=== PATIENT | female | born 1970 | race American Indian/Alaskan Native ===

== ENCOUNTER 2019-06-30 01:17 | Emergency (ER) | payer OTHER ==
[~2019-06-30] VITALS: Ht 175.3 cm; Wt 88.9 kg
--- OUTSIDE RECORDS SUMMARY | ~2019-06-30 | XMS | Encounter Summary ---
Demographics + + + | Address | [address] | | | [place] [address] | + + + | Home Phone | | + + + | Preferred Language | Unknown | + + + | Marital Status | | + + + | Muslim Affiliation | Unknown | + + + | Race | Unknown | + + + | Ethnic Group | Unknown | + + + Author + + + | Author | [facility] | | | and Jose Miguelana | + + + | Organization | [facility] | | | and Jose Miguelana | + + + | Address | Unknown | + + + | Phone | Unavailable | + + + Support + + +---------+ + | Name | Relationship | Address | Phone | + + +---------+ + | Julio Cesar Rankin | ECON | Unknown | | + + +---------+ + Care Team Providers + +------+ + | Care Sample Washer Name | Role | Phone | + +------+ + | Raman Anderson MD | PCP | | + +------+ + Reason for Visit +--------+ + | Reason | Comments | +--------+ + | Other | | +--------+ + Encounter Details +--------+ + + + + | Date | Type | Department | Care Team | Description | +--------+ + + + + | 09/17/ | Telephone | [facility] | Aurelio Ramos MD | Other | | 2017 | | CARE [address] | [address] | | | | | [place] | [place] | | | | | [id number] | [id number] | | | | | [phone] | | | +--------+ + + + + Social History + +-------+ +--------+------+ | Tobacco Use | Types | Packs/Day | Years | Date | | | | | Used | | + +-------+ +--------+------+ | Never Smoker | | | | | + +-------+ +--------+------+ + +---+---+---+ | Smokeless Tobacco: | | | | | Never Used | | | | + +---+---+---+ + + +---------+ + | Alcohol Use | Drinks/Week | oz/Week | Comments | + + +---------+ + | Yes | 0 Standard drinks | 2.0 | | | | or equivalent 2 | | | | | Cans of beer | | | + + +---------+ + + + + | Sex Assigned at | Date Recorded | | | | + + + | Not on file | | + + + + + + + | Job Start Date | Occupation | Industry | + + + + | Not on file | Not on file | Not on file | + + + + + + + + | Travel History | Travel Start | Travel End | + + + + + + | No recent travel history available. | + + documented as of this encounter Plan of Treatment Not on filedocumented as of this encounter Visit Diagnoses Not on filedocumented in this encounter"
--- OUTSIDE RECORDS SUMMARY | ~2019-06-30 | XMS | Encounter Summary ---
Demographics + + + | Address | [address] | | | [place] [address] | + + + | Home Phone | | + + + | Preferred Language | Unknown | + + + | Marital Status | | + + + | Jewish Affiliation | Unknown | + + + | Race | Unknown | + + + | Ethnic Group | Unknown | + + + Author + + + | Author | [facility] | | | and Jose Miguelana | + + + | Organization | [facility] [place] | | | and Jose [...] Team Providers + +------+ + | Care Customer Consultant Name | Role | Phone | + +------+ + | Raman Anderson MD | PCP | | + +------+ + Reason for Visit + + + | Reason | Comments | + + + | Medication Refill | | + + + Encounter Details +--------+--------+ + + + | Date | Type | Department | Care Team | Description | +--------+--------+ + + + | 05/12/ | Refill | [facility] | Wilber Dsouza | Medication Refill | | 2017 | | [address] | [address], [address] | | | | | [place] | [address] [place] | | | | | [id number] | [id number] | | | | | [phone] | | | +--------+--------+ + + + Social History + +-------+ [...]
--- OUTSIDE RECORDS SUMMARY | ~2019-06-30 | XMS | Encounter Summary ---
Demographics + + + | Address | [address] | | | [place] [address] | + + + | Home Phone | | + + + | Preferred Language | Unknown | + + + | Marital Status | | + + + | Amish Affiliation | Unknown | + + + | Race | Unknown | + + + | Ethnic Group | Unknown | + + + Author + + + | Author | [facility] | | | and Jose Miguelana | + + + | Organization | [facility] [place] | | | and Jose Miguelana [...] Team Providers + +------+ + | Care Matchbook Maker Name | Role | Phone | + +------+ + | No, Physician | PCP | Unavailable | + +------+ + Reason for Visit +--------+ + | Reason | Comments | +--------+ + | Cough | room 1/fever,body aches, headaches x 5 days | +--------+ + Encounter Details +--------+---------+ + + + | Date | Type | Department | Care Team | Description | +--------+---------+ + + + | 06/26/ | Office | [facility] | Wilber Dsouza | Viral URI with cough | | 2016 | Visit | CARE [address] | MD [address] [address] | (Primary Dx); | | | | [place] | [address] [place] | Influenza, probable | | | | [id number] | [id number] | | | | | [phone] | | | +--------+---------+ + + + Social History + +-------+ [...] + + documented as of this encounter Last Filed Vital Signs + + + + + | Vital Sign | Reading | Time Taken | Comments | + + + + + | Blood Pressure | 113/69 | 06/26/2016 5:17 PM | | | | | PST | | + + + + + | Pulse | 70 | 06/26/2016 5:17 PM | | | | | PST | | + + + + + | Temperature | 36.6 C (97.8 F) | 06/26/2016 5:17 PM | | | | | PST | | + + + + + | Respiratory Rate | 16 | 06/26/2016 5:17 PM | | | | | PST | | + + + + + | Oxygen Saturation | 98% | 06/26/2016 5:17 PM | | | | | PST | | + + + + + | Inhaled Oxygen | - | - | | | Concentration | | | | + + + + + | Weight | 88.8 kg (195 lb 12.8 | 06/26/2016 5:17 PM | | | | oz) | PST | | + + + + + | Height | 175.3 cm (5' 9") | 06/26/2016 5:17 PM | | | | | PST | | + + + + + | Body Mass Index | 28.91 | 06/26/2016 5:17 PM | | | | | PST | | + + + + + documented in this encounter Patient Instructions Patient Instructions Wilber Dsouza MD - 06/26/2016 5:52 PM PSTReturn to work on June 28, 2016 or 24 hours after her last fever without taking fever reducing med ication, whichever is longer. Drink plenty of fluids and get plenty of rest. Use ccfy-hdu-pzhrcgd Tylenol, Aleve or Advil as needed for fever, aches and pains. Lavage nose with saline solution 3-4 times a day to improve nasal congestion. Mix 1 level t easpoon of table salt with 2 cups of lukewarm water for nasal irrigation. Use cool mist vaporizer in bedroom and living space to reduce cough and airway irritation. Gargle and spit out warm salt water to soothe sore throat. Use throat lozenges of choice an d/or Cepastat throat spray as needed. Take ramp-hfv-qadnrai Mucinex or equivalent product as needed for thick mucous. Use Tessalon Perles as needed for cough. Return or follow-up with your primary doctor if not better in 1 week, sooner if experiencin g difficulty swallowing liquids, progressive productive cough, associated chest pain, shortn ess of breath, fever or progessive sinus pressure/headache. These are signs that you may n eed an antibiotic for bacterial infection. Influenza (Adult) Influenza is also called the flu. It is a viral illness that affects the air passages of yo ur lungs. It is different from the common cold. The flu can easily be passed from one to per son to another. It may be spread through the air by coughing and sneezing. Or it can be spre ad by touching the sick person and then touching your own eyes, nose, or mouth. The flu starts 1 to 3 days after you are exposed to the flu virus. It may lastfor 1 to 2 weeks. You usually don t need to take antibiotics unless you have a complication. This alda ht be an ear or sinus infection or pneumonia. Symptoms of the flu may be mild or severe. They can include extreme tiredness (wanting to s traci in bed all day), chills, fevers, muscle aches, soreness with eye movement, headache, and a dry, hacking cough. Home care Follow these guidelines when caring for yourself at home: Avoid being around cigarette smoke, whether yours or other people s. Acetaminophen or ibuprofen will help ease your fever, muscle aches, and headache. Don t give aspirin to anyone younger than 18 who has the flu. Aspirin can harm the liver. Nausea and loss of appetite are common with the flu. Eat light meals. Drink 6 to 8 glass es of liquids every day. Good choices are water, sport drinks, soft drinks without caffeine, juices, tea, and soup. Extra fluids will also help loosen secretions in your nose and lungs . Wldr-kqg-bkcasxa cold medicines will not make the flu go away faster. But the medicines may help with coughing, sore throat, and congestion in your nose and sinuses. Don t use a decongestant if you have high blood pressure. Stay home until your fever has been gone for at least 24 hours without using medicine to reduce fever. Follow-up care Follow up with your health care provider, or as advised, if you are not getting better over the next week. If you are 65 or older, talk with your provider about getting a pneumococcal vaccine every 5 years. You should also get this vaccine if you have chronic asthma or COPD. All adults hugo uld get a flu vaccine every fall. Ask your provider about this. When to seek medical advice Call your health care provider right away if any of these occur: Cough with lots of colored sputum (mucus) or blood in your sputum Chest pain, shortness of breath, wheezing, or difficulty breathing Severe headache, or face, neck, or ear pain New rashwith fever Fever of 101F (38C) oral or higher that doesn t get better with fever medicine Confusion, behavior change, or seizure Severe weakness or dizziness You get a fever or cough after getting better for a few days [id number] [employer]. [address] [place] [address]. All righ ts reserved. This information is not intended as a substitute for professional medical care. Always follow your healthcare professional's instructions. documented in this encounter Progress Notes Wilber Dsouza MD - 06/26/2016 5:38 PM PSTFormatting of this note might be differen t from the original. Chief Complaint: Katie Leonard is a 45 y.o. female who comes in complaining of fever and cough for 5-6 days. Has ivan al congestion, facial sinus pain/pressure, bilateral ear ache, bilateral eye irritation, sor e throat and dry, hackey cough. No measured fever, had sweats or chills. Diffuse body aches and headache. Mild nausea withotu vomiting. Mild diarrhea. Mild shortness of breath, no whee zing and anterior pleuritic chest burning/pain. Non smoker and no hx of asthma or COPD. Antony grace hospitalized for the same. Has been taking Nyquil and essential oils with improvement in s ymptoms. Had exposure to son with the same. Patient's medications, allergies, past medical, surgical, social and family histories were reviewed and updated as appropriate. Objective: BP 113/69 mmHg | Pulse 70 | Temp(Src) 36.6 C (97.8 F) (Temporal) | Resp 16 | Ht 1.753 m (5' 9") | Wt 88.814 kg (195 lb 12.8 oz) | BMI 28.90 kg/m2 | SpO2 98% General Appearance: Alert, cooperative, no distress, appears stated age. Non toxic appeara nce. Head: Normocephalic, no mastoid tenderness, no facial sinus tenderness. Eyes: PERRL, conjunctiva clear without exudates. Ears: Unremarkable TM's with clear external ear canals and gross normal hearing. Nose: Moderately congested with clear exudates. Throat: Erythematous, mildly edematous without exudates. Moist MM. Neck: Supple, symmetrical, no anterior cervical adenopathy. Lungs: Clear to auscultation bilaterally without rales or wheezes, respirations unlabored. Cardiac: Regular rhythm, no murmur or sue. No ankle edema. Abdomen: Soft, non tender. No organomegaly. Skin: Skin color, texture, turgor normal, no rash. Assessment and Plans: 1. Viral URI with cough benzonatate (TESSALON PERLES) 100 mg capsule 2. Influenza, probable 5 day history of viral URI with cough consistent with probable influenza. Given the durati on of her symptoms, flu testing would not change our treatment plan. She was given the foll owing instructions and a note for work. Plan: Return to work on , June 28, 2016 or 24 hours after her last fever without taki ng fever reducing medication, whichever is longer. Drink plenty of fluids and get plenty of rest. Use agpg-uag-dlpwilo Tylenol, Aleve or Advil as needed for fever, aches and pains. Lavage nose with saline solution 3-4 times a day to improve nasal congestion. Mix 1 level t easpoon of table salt with 2 cups of lukewarm water for nasal irrigation. Use cool mist vaporizer in bedroom and living space to reduce cough and airway irritation. Gargle and spit out warm salt water to soothe sore throat. Use throat lozenges of choice an d/or Cepastat throat spray as needed. Take gaxf-rcx-anynexi Mucinex or equivalent product as needed for thick mucous. Use Tessalon Perles as needed for cough. Return or follow-up with your primary doctor if not better in 1 week, sooner if experiencin g difficulty swallowing liquids, progressive productive cough, associated chest pain, shortn ess of breath, fever or progessive sinus pressure/headache. These are signs that you may n eed an antibiotic for bacterial infection. Wilber Morocho documented in t his encounter Plan of Treatment Not on filedocumented as of this encounter Visit Diagnoses + + | Diagnosis | + + | Viral URI with cough - Primary Acute upper respiratory infections of unspecified site | + + | Influenza, probable Influenza with other respiratory manifestations | + + documented in this encounter
--- OUTSIDE RECORDS SUMMARY | ~2019-06-30 | XMS | Encounter Summary ---
Demographics + + + | Address | [address] | | | [place] [address] | + + + | Home Phone | | + + + | Preferred Language | Unknown | + + + | Marital Status | | + + + | Faith Affiliation | Unknown | + + + | Race | Unknown | + + + | Ethnic Group | Unknown | + + + Author + + + | Author | [facility] | | | and Jose Miguelana | + + + | Organization | [facility] [place] | | | and Jose [...] Team Providers + +------+ + | Care Logger All Round Name | Role | Phone | + +------+ + | Raman Anderson MD | PCP | | + +------+ + Reason for Visit + + + | Reason | Comments | + + + | Ear Fullness | LEFT EAR FEELS PLUGGED AND goes down into neck, RM 8 | + + + | Facial Pain | sinus pressure | + + + Encounter Details +--------+---------+ + + + | Date | Type | Department | Care Team | Description | +--------+---------+ + + + | 06/27/ | Office | [facility] | Aurelio Ramos MD | Acute serous otitis | | 2019 | Visit | CARE [address] | [address] | media of left ear, | | | | [place] | [place] | recurrence not | | | | [id number] | [id number] | specified (Primary | | | | [phone] | | Dx) | +--------+---------+ + + + Social History [...] + + + | Blood Pressure | 108/71 | 06/27/2019 2:03 PM | | | | | PST | | + + + + + | Pulse | 84 | 06/27/2019 2:03 PM | | | | | PST | | + + + + + | Temperature | 36.8 C (98.2 F) | 06/27/2019 2:03 PM | | | | | PST | | + + + + + | Respiratory Rate | 12 | 06/27/2019 2:03 PM | | | | | PST | | + + + + + | Oxygen Saturation | 95% | 06/27/2019 2:03 PM | | | | | PST | | + + + + + | Inhaled Oxygen | - | - | | | Concentration | | | | + + + + + | Weight | 89 kg (196 lb 3.4 | 06/27/2019 2:03 PM | | | | oz) | PST | | + + + + + | Height | 175.3 cm (5' 9") | 06/27/2019 2:03 PM | | | | | PST | | + + + + + | Body Mass Index | 28.98 | 06/27/2019 2:03 PM | | | | | PST | | + + + + + documented in this encounter Patient Instructions Patient Instructions Aurelio Ramos MD - 06/27/2019 1:15 PM PST Earache, No Infection (Adult) Earaches can happen without an infection. This occurs when air and fluid build up behind th e eardrum causing a feeling of fullness and discomfort and reduced hearing. This is called o titis media with effusion (OME) or serous otitis media. It means there is fluid in the middl e ear. It is not the same as acute otitis media, which is typically from infection. OME can happen when you have a cold if congestion blocks the passage that drains the middle ear. This passage is called the eustachian tube. OME may also occur with nasal allergies or after a bacterial middle ear infection. The pain or discomfort may come and go. You may hear clicking or popping sounds when you ch ew or swallow. You may feel that your balance is off. Or you may hear ringing in the ear. It often takes from several weeks up to 3 months for the fluid to clear on its own. Oral pa in relievers and ear drops help if there is pain. Decongestants and antihistamines sometimes help. Antibiotics don't help since there is no infection. Your doctor may prescribe a nasal spray to help reduce swelling in the nose and eustachian tube. This can allow the ear to dr poon. If your OME doesn't improve after 3 months, surgery may be used to drain the fluid and inse rt a small tube in the eardrum to allow continued drainage. Because the middle ear fluid can become infected, it is important to watch for signs of an ear infection which may develop later. These signs include increased ear pain, fever, or luz maria inage from the ear. Home care The following guidelines will help you care for yourself at home: You may use dbti-zle-czriwnm medicine as directed to control pain, unless another medici ne was prescribed. If you have chronic liver or kidney disease or ever had a stomach ulcer o r GI bleeding, talk with your doctor before using these medicines. Aspirin should never be u sed in anyone under 18 years of age who is ill with a fever. It may cause severe liver damag e. You may use sqci-zwu-kenqxlz decongestants such as phenylephrine or pseudoephedrine. But they are not always helpful. Don't use nasal spray decongestants more than 3 days. Longer u se can make congestion worse. Prescription nasal sprays from your doctor don't typically hav e those restrictions. Antihistamines may help if you are also having allergy symptoms. You may use medicines such as guaifenesin to thin mucus and promote drainage. Follow-up care Follow up with your healthcare provider or as advised if you are not feeling better after 3 days. When to seek medical advice Call your healthcare provider right away if any of the following occur: Your ear pain gets worse or does not start to improve Fever of 100.4F (38C) or higher, or as directed by your healthcare provider Fluid or blood draining from the ear Headache or sinus pain Stiff neck Unusual drowsiness or confusion Date Last Reviewed: 03/31/201619992047-9966 [employer]. [address] [place] [address]. All righ ts reserved. This information is not intended as a substitute for professional medical care. Always follow your healthcare professional's instructions. documented in this encounter Progress Notes Aurelio Ramos MD - 06/27/2019 1:15 PM PST Subjective: Patient ID: Aisha Rankin is a 48 y.o. female. For 48 to 72 hours, patient's left ear farr s felt stuffy and painful, 7/10 intensity, constant pain. The pain radiates down the angle of her mandible and into the superior part of the left side of her neck. She denies recent URI, but has perennial allergic rhinitis and congestion. The ear does not pop. No cough, no fever. She feels as if her face is full and congested. HPI Patient's medications, allergies, past medical, surgical, social and family histories were obtained and reviewed as appropriate. Review of Systems he has past history of sinus infection. No past history of otitis media. No GI or symptoms. Some aching of the apex of the left shoulder in the same timeframe. Objective: BP 108/71 | Pulse 84 | Temp 36.8 C (98.2 F) (Temporal) | Resp 12 | Ht 1.753 m (5' 9 ") | Wt 89 kg (196 lb 3.4 oz) | SpO2 95% | No | BMI 28.98 kg/m Physical Exam Vitals signs and nursing note reviewed. Constitutional: Comments: Normally developed, adequately nourished, and not in acute distress. Does not appear acutely ill. HENT: Head: Comments: Ear canal is a little swollen, and tender to traction on the pinna. The left TM is dull, not bulging. Left parotid gland is slightly tender and mushy. Right Ear: Tympanic membrane, ear canal and external ear normal. Nose: Congestion and rhinorrhea present. Comments: No sinus tenderness. Mouth/Throat: Pharynx: Oropharynx is clear. Cardiovascular: Comments: Cardiac rhythm is regular, and rate is within normal limits. Heart sounds are of good quality. No murmur or gallop heard. Pulmonary: Comments: No respiratory distress. Respiratory effort is normal. Clear breath sounds h eard throughout all lung garcia. Musculoskeletal: Arms: Lymphadenopathy: Cervical: No cervical adenopathy. Assessment: Eustachian salpingitis, with impending left otitis media Serous otitis media Plan: Rx amoxicillin 875 mg twice daily x 10 days. Ibuprofen may be helpful, as well as intermit tent heat. She may have a mild parotitis on the left as well. She will follow-up PRN poor progress and continue nasal decongestants. This note or portions of this note have been dictated using [employer] s oftware. It will be reviewed for major content but may contain mistakes due to difficulties with voice recognition software. documented in this enc ounter Plan of Treatment Not on filedocumented as of this encounter Visit Diagnoses + + | Diagnosis | + + | Acute serous otitis media of left ear, recurrence not specified - Primary | + + documented in this encounter
--- OUTSIDE RECORDS SUMMARY | ~2019-06-30 | XMS | Encounter Summary ---
Demographics + + + | Address | [address] | | | [place] [address] | + + + | Home Phone | | + + + | Preferred Language | Unknown | + + + | Marital Status | | + + + | Latter-Day Affiliation | Unknown | + + + | Race | Unknown | + + + | Ethnic Group | Unknown | + + + Author + + + | Author | [facility] | | | and Jose Miguelana | + + + | Organization | [facility] | | | and Jose [...] Team Providers + +------+ + | Care Health Informatics Advisor Name | Role | Phone | + +------+ + | Raman Anderson MD | PCP | | + +------+ + Encounter Details +--------+ + + + + | Date | Type | Department | Care Team | Description | +--------+ + + + + | 07/13/ | [facility] | [facility] | Aurelio Ramos MD | Injury of left | | 2017 | Encounter | [facility] | [address] | ankle, initial | | | | [address] | [place] | encounter | | | | [place] | [address] | | | | | [address] | | | | | | [phone] | | | +--------+ + + + [...] + + documented as of this encounter Medications at Time of Discharge + + + +---------+--------+ + | Medication | Sig | Dispensed | Refills | Start | End Date | | | | | | Date | | + + + +---------+--------+ + | fluticasone | 1 spray by Nasal | | 0 | | | | (FLONASE) 50 | route Daily. | | | | | | mcg/nasal spray | | | | | | + + + +---------+--------+ + | Loratadine | Take by mouth. | | 0 | | | | (CLARITIN PO) | | | | | | + + + +---------+--------+ + | ESTRADIOL TD | Place onto the | | 0 | | | | | skin. | | | | 7 | + + + +---------+--------+ + documented as of this encounter Plan of Treatment Not on filedocumented as of this encounter Procedures + +--------+ + + + | Procedure Name | Priori | Date/Time | Associated Diagnosis | Comments | | | ty | | | | + +--------+ + + + | XR ANKLE LEFT 3 + VW | Routin | 07/13/2016 | Injury of left | Results for this | | | e | 1:39 PM | ankle, initial | procedure are in the | | | | PST | encounter | results section. | + +--------+ + + + documented in this encounter Results XR Ankle Left 3 + Vw (07/13/2016 1:39 PM PST) + + | Specimen | + + | | + + + + + | Narrative | Performed At | + + + | XR ANKLE LEFT 3 + VW 07/13/2016 1:39 PM HISTORY: pain ankle. | [facility] | | COMPARISON: None. FINDINGS: There are no acute osseous | [facility] | | abnormalities. No significant degenerative changes are seen. Bone | [facility] | | mineralization is normal. Soft tissue structures are unremarkable. | - IMAGING | | IMPRESSION - No acute osseous findings. No acute soft tissue | | | swelling. Small plantar calcaneal enthesophyte. Dictated | | | and Signed by: Deyvi Pichardo MD Electronically signed: 07/13/2016 | | | 1:45 PM | | + + + + + | Procedure Note | + + | Donaldo, Rad Results In - 07/13/2016 1:48 PM PST XR ANKLE LEFT 3 + VW 07/13/2016 1:39 PM | | | | HISTORY: pain ankle. | | | | COMPARISON: None. | | | | FINDINGS: | | There are no acute osseous abnormalities. No significant degenerative changes | | are seen. Bone mineralization is normal. Soft tissue structures are | | unremarkable. | | | | IMPRESSION - | | No acute osseous findings. No acute soft tissue swelling. | | | | Small plantar calcaneal enthesophyte. | | | | | | | | Dictated and Signed by: Deyvi Pichardo MD | | Electronically signed: 07/13/2016 1:45 PM | + + + + + + + | Performing | Address | City/State/Zipcode | Phone Number | | Organization | | | | + + + + + | [facility] | [address] | [place], [place] | [phone] | | [facility] | | [address] | | | - IMAGING | | | | + + + + + documented in this encounter Visit Diagnoses + + | Diagnosis | + + | Injury of left ankle, initial encounter | + + documented in this encounter"
--- OUTSIDE RECORDS SUMMARY | ~2019-06-30 | XMS | Encounter Summary ---
Demographics + + + | Address | [address] | | | [place] [address] | + + + | Home Phone | | + + + | Preferred Language | Unknown | + + + | Marital Status | | + + + | Mormonism Affiliation | Unknown | + + + | Race | Unknown | + + + | Ethnic Group | Unknown | + + + Author + + + | Author | [facility] | | | and Jose Miguelana | + + + | Organization | [facility] | | | and Jose [...] Team Providers + +------+ + | Care Last Sorter Name | Role | Phone | + [...] Description | +--------+--------+ + + + | 06/23/ | Refill | [facility] | Wilber Dsouza | Medication Refill | | 2017 | | [address] | [address] | | | | | [place] | [address] [place] | | | | | [address] | [address] | | | | | [phone] | | | +--------+--------+ + + + [...]
--- OUTSIDE RECORDS SUMMARY | ~2019-06-30 | XMS | Encounter Summary ---
Demographics + + + | Address | [address] | | | [place] [address] | + + + | Home Phone | | + + + | Preferred Language | Unknown | + + + | Marital Status | | + + + | Hinduism Affiliation | Unknown | + + + | Race | Unknown | + + + | Ethnic Group | Unknown | + + + Author + + + | Author | [facility] | | | and Jose Miguelana | + + + | Organization | [facility] | | | and Jose [...] Team Providers + +------+ + | Care Truck Dock Material Mover Name | Role | Phone | + +------+ + | Raman Anderson MD | PCP | | + +------+ + Encounter Details +--------+ + + + + | Date | Type | Department | Care Team | Description | +--------+ + + + + | 07/13/ | [facility] | [facility] | Aurelio Ramos MD | Injury of left | | 2017 | Encounter | [facility] | [address] | ankle, initial | | | | [address] | [place] | encounter | | | | [place] | [address] | | | | | [address] | | | | | | [phone] | | | +--------+ + + + [...] ST[facility] | [address] | [place], [place] | [phone] | | [facility] | | [address] | | | - IMAGING | | | | + + + + + documented in this encounter Visit Diagnoses + + | Diagnosis | + + | Injury of left ankle, initial encounter | + + documented in this encounter"
--- OUTSIDE RECORDS SUMMARY | ~2019-06-30 | XMS | Clinical Summary ---
Demographics + + + | Address | [address] | | | [place] [address] | + + + | Home Phone | | + + + | Preferred Language | Unknown | + + + | Marital Status | | + + + | Amish Affiliation | Unknown | + + + | Race | Unknown | + + + | Ethnic Group | Unknown | + + + Author + + + | Author | [facility] | | | and Jose Miguelana | + + + | Organization | [facility] | | | and Jose Miguelana [...] Team Providers + +------+ + | Care Funeral Counselor Name | Role | Phone | + +------+ + | Raman Anderson MD | PCP | | + +------+ + Allergies No Known Allergies Medications + + + +---------+------+------+-------+ | Medication | Sig | Dispensed | Refills | Star | End | Statu | | | | | | t | Date | s | | | | | | Date | | | + + + +---------+------+------+-------+ | fluticasone | 1 spray by Nasal | | 0 | | | Activ | | (FLONASE) 50 | route Daily. | | | | | e | | mcg/nasal spray | | | | | | | + + + +---------+------+------+-------+ | Loratadine | Take by mouth. | | 0 | | | Activ | | (CLARITIN PO) | | | | | | e | + + + +---------+------+------+-------+ | cholecalciferol | Take 800 Units by | | 0 | | | Activ | | (VITAMIN D-3) 400 | mouth Daily. | | | | | e | | units capsule | | | | | | | + + + +---------+------+------+-------+ | Calcium 250 MG | Take by mouth. | | 0 | | | Activ | | CAPS | | | | | | e | + + + +---------+------+------+-------+ | azelastine | | | 0 | 10/0 | | Activ | | (OPTIVAR) 0.05 % | | | | 2/20 | | e | | ophthalmic solution | | | | 17 | | | + + + +---------+------+------+-------+ | SUDOGEST 30 MG | | | 4 | 09/2 | | Activ | | tablet | | | | 20 | | e | | | | | | 17 | | | + + + +---------+------+------+-------+ | estradiol | | | 0 | 09/0 | | Activ | | (ESTRACE) 1 mg | | | | 20 | | e | | tablet | | | | 19 | | | + + + +---------+------+------+-------+ | amoxicillin | Take 1 tablet by | 20 | 0 | 12/2 | 01/0 | Activ | | (AMOXIL) 875 mg | mouth 2 times daily | tablet | | /20 | / | e | | tabletIndications: | for 10 days. | | | 19 | 20 | | | Acute serous otitis | | | | | | | | media of left ear, | | | | | | | | recurrence not | | | | | | | | specified | | | | | | | + + + +---------+------+------+-------+ | vitamin B | Take 1 capsule by | | 0 | | 12/2 | Disco | | complex-C CAPS | mouth Daily. | | | | 8/20 | ntinu | | | | | | | 19 | ed | | | | | | | | (Ther | | | | | | | | apy | | | | | | | | compl | | | | | | | | eted) | + + + +---------+------+------+-------+ | estradiol | | | 11 | 09/3 | 12/2 | Disco | | (CLIMARA) 0.1 mg/24 | | | | 0/20 | 8/20 | ntinu | | hr | | | | 17 | 19 | ed | | | | | | | | (Ther | | | | | | | | apy | | | | | | | | compl | | | | | | | | eted) | + + + +---------+------+------+-------+ | raNITIdine | TAKE ONE TABLET BY | 30 | 0 | 12/2 | 12/2 | Disco | | (ZANTAC) 150 mg | MOUTH TWICE DAILY | tablet | | 8/20 | 8/20 | ntinu | | tablet | | | | 17 | 19 | ed | | | | | | | | (Ther | | | | | | | | apy | | | | | | | | compl | | | | | | | | eted) | + + + +---------+------+------+-------+ Active Problems No known active problems Encounters +--------+---------+ + + + | Date | Type | Specialty | Care Team | Description | +--------+---------+ + + + | 06/27/ | Office | Immediate Care | Aurelio Ramos MD | Acute serous otitis | | 2019 | Visit | | | media of left ear, | | | | | | recurrence not | | | | | | specified (Primary | | | | | | Dx) | +--------+---------+ + + + from Last 3 Months Family History + + +------+ + | Medical History | Relation | Name | Comments | + + +------+ + | Heart disease | Father | | | + + +------+ + | No known problems | Mother | | | + + +------+ + + +------+ + + | Relation | Name | Status | Comments | + +------+ + + | Father | | | | + +------+ + + | Mother | | Alive | | + +------+ + + Social History + +-------+ +--------+------+ [...] recent travel history available. | + + Last Filed Vital Signs + + + [...] | | + + + + + Plan of Treatment + + + + + | Health Maintenance | Due Date | Last Done | Comments | + + + + + | Vaccine: | | | | | Dtap/Tdap/Td (1 - | 2 | | | | Tdap) | | | | + + + + + | Breast Cancer | | | | | Screening | 6 | | | + + + + + | Vaccine: Influenza | Completed | 03/24/2019, 04/22/2018, | | | | | 04/14/2012, Additional history | | | | | exists | | + + + + + Results Not on filefrom Last 3 Months Insurance +-------+--------+ +--------+ +---------+------+ | Payer | Benefi | Subscriber | Effect | Phone | Address | Type | | | t Plan | ID | chepe | | | | | | / | | Dates | | | | | | Group | | | | | | +-------+--------+ +--------+ +---------+------+ | GEHA | GEHA | [id number] | 06/27/ | [phone] | | PPO | | | [employer]ET[employer] | | 2019-P | 6 | | | | | PPO | | resent | | | | +-------+--------+ +--------+ +---------+------+ + +--------+ +--------+ + + | Guarantor Name | Accoun | Relation to | Date | Phone | Billing Address | | | t Type | Patient | of | | | | | | | | | | + +--------+ +--------+ + + | Aisha Rankin | Person | Self [birth year] | [address] | | | al/Fam | | 1971 | [phone] | [place] [address] | | | mu | | | 0 (Home) | | + +--------+ +--------+ + + Advance Directives + + + + + | Type | Date Recorded | Patient | Explanation | | | | Doggy Daycare Activities Director | | + + + + + | Power of | | | | | Floor Renovator | | | | + + + + + | Advance | | | | | Directive | | | | + + + + +
--- OUTSIDE RECORDS SUMMARY | ~2019-06-30 | XMS | Encounter Summary ---
Demographics + + + | Address | [address] | | | [place] [address] | + + + | Home Phone | | + + + | Preferred Language | Unknown | + + + | Marital Status | | + + + | Zoroastrianism Affiliation | Unknown | + + + | Race | Unknown | + + + | Ethnic Group | Unknown | + + + Author + + + | Author | [facility] | | | and Jose Miguelana | + + + | Organization | [facility] | | | and [...] Team Providers + +------+ + | Care Rough And Trueing Machine Operator Name | Role | Phone | + +------+ + | Raman Anderson MD | PCP | | + +------+ + Reason for Visit + + + | Reason | Comments | + + + | Ankle Injury | room 5/ Lf ankle inj x 1 day | + + + Encounter Details +--------+---------+ + + + | Date | Type | Department | Care Team | Description | +--------+---------+ + + + | 07/13/ | Office | [facility] | Aurelio Ramos MD | Injury of left | | 2017 | Visit | CARE [address] | [address] | ankle, initial | | | | [place] | [place] | encounter (Primary | | | | [address] | [address] | Dx) | | | | [phone] | | | +--------+---------+ + + + [...] + + + | Blood Pressure | 117/66 | 07/13/2016 12:36 PM | | | | | PST | | + + + + + | Pulse | 88 | 07/13/2016 12:36 PM | | | | | PST | | + + + + + | Temperature | 36.1 C (97 F) | 07/13/2016 12:36 PM | | | | | PST | | + + + + + | Respiratory Rate | 16 | 07/13/2016 12:36 PM | | | | | PST | | + + + + + | Oxygen Saturation | 96% | 07/13/2016 12:36 PM | | | | | PST | | + + + + + | Inhaled Oxygen | - | - | | | Concentration | | | | + + + + + | Weight | 88.5 kg (195 lb) | 07/13/2016 12:36 PM | | | | | PST | | + + + + + | Height | 175.3 cm (5' 9") | 07/13/2016 12:36 PM | | | | | PST | | + + + + + | Body Mass Index | 28.8 | 07/13/2016 12:36 PM | | | | | PST | | + + + + + documented in this encounter Patient Instructions Patient Instructions Aurelio Ramos MD - 07/13/2016 1:50 PM PSTFormatting of this note mi ght be different from the original. Understanding Ankle Sprain The ankle is the joint where the leg and foot meet. Bones are held in place by connective t issue called ligaments. When ankle ligaments are stretched to the point of pain and injury, it is called an ankle sprain. A sprain can tear the ligaments. These tears can be very small but still cause pain. Ankle sprains can be mild or severe. What causes an ankle sprain? A sprain may occur when you twist your ankle or bend it too far. This can happen when you s tumble or fall. Things that can make an ankle sprain more likely include: Having had an ankle sprain before Playing sports that involve running and jumping. Or playing contact sports such as footb all or hockey. Wearing shoes that don t support your feet and ankles well Having ankles with poor strength and flexibility Symptoms of an ankle sprain Symptoms may include: Pain or soreness in the ankle Swelling Redness or bruising Not being able to walk or put weight on the affected foot Reduced range of motion in the ankle A popping or tearing feeling at the time the sprain occurs An abnormal or dislocated look to the ankle Instability or too much range of motion in the ankle Treatment for an ankle sprain Treatment focuses on reducing pain and swelling, and avoiding further injury. Treatments ma y include: Resting the ankle. Avoid putting weight on it. This may mean using crutches until the sp rain heals. Prescription or bgkj-dch-menyzuy pain medicines. These help reduce swelling and pain. Cold packs. These help reduce pain and swelling. Raising your ankle above your heart. This helps reduce swelling. Wrapping the ankle with an elastic bandage or ankle brace. This helps reduce swelling an d gives some support to the ankle. In rare cases, you may need a cast or boot. Stretching and other exercises. These improve flexibility and strength. Heat packs. These may be recommended before doing ankle exercises. Possible complications of an ankle sprain An ankle that has been weakened by a sprain can be more likely to have repeated sprains aft erward. Doing exercises to strengthen your ankle and improve balance can reduce your risk fo r repeated sprains. Other possible complications are long-term (chronic) pain or an ankle th at remains unstable. When to call your healthcare provider Call your healthcare provider right away if you have any of these: Fever of 100.4F (38C) or higher, or as directed Pain, numbness, discoloration, or coldness in the foot or toes Pain that gets worse Symptoms that don t get better, or get worse New symptoms Date Last Reviewed: 09/08/201519995839-0322 [employer]. [address] [place] [address], [place] [address]. All righ ts reserved. This information is not intended as a substitute for professional medical care. Always follow your healthcare professional's instructions. Ankle Inversion (Strength) This exercise is for your right ankle. Switch sides for your left ankle. Tie an elastic exercise band or tubing to the leg of a table. Tie the other end to your right foot. Stand far enough away from the table so that the elastic band or tubing is pulled tight. Point your right foot firmly to the left, pulling on the elastic band or tubing. Hold fo r 5 seconds. Relax your foot back to a straight position. Repeat this exercise 10 times. Do this exercise 3 times a day, or as instructed. Date Last Reviewed: 10/30/201519990155-6583 [employer]. [address] [place] [address], [place] [address]. All righ ts reserved. This information is not intended as a substitute for professional medical care. Always follow your healthcare professional's instructions. Ankle Sprain (Adult) An ankle sprain is a stretching or tearing of the ligaments that hold the ankle joint toget her. There are no broken bones. An ankle sprain is a common injury for both children and adults. It happens when the ankle turns, twists, or rolls in an awkward way. This can be caused by a sports injury. Or it can happen from doing something as simple as stepping on an uneven surface. Ligaments are made of tough connective tissue. Normally, ligaments stretch a certain amount and then go back to their normal place. A sprain happens when a ligament is forced to stret ch more than the normal amount. A severe sprain can actually tear the ligaments. If you have a severe sprain, you may have felt or heard something like a pop when you were injured. Ankle sprains are given a grade depending on whether they are mild, moderate, or severe: Grade 1 sprain. A mild sprain with minor stretching and damage to the ligament. Grade 2 sprain. A moderate sprain where the ligament is partly torn. Grade 3 sprain. The most severe kind of sprain. The ligament is completely torn. Most sprainstake about 4 to 6 weeks to heal. A severe sprain can take several months to r ecover. Your healthcare provider may order X-rays to be sure you don t have a fracture, or broken bone. The injured area will feel sore. Swelling and pain may make it hard to walk. You may need crutches if walking is painful. Or your provider may have you use a cast boot or air splint. This will depend on the grade of ankle sprain that you have. Home care For a Grade 1 sprain, use RICE (Rest, Ice, Compression, and Elevation): Rest your ankle. Don t walk on it. Ice should be used right away to help control swelling. Place an ice pack over the injur ed area for 20 minutes. Do this every3 to 6hoursfor the first24 to 48 hours.Keep u sing ice packs to ease pain and swelling as needed. To make an ice pack, put ice cubes in a plasticbag that seals at the top. Wrap the bag in aclean, thintowel or cloth. Never pu t ice or an ice pack directly on the skin. The ice pack can be put right on the cast, bandag e, or splint. As the ice melts, be careful that the cast, bandage, or splint doesn t get w et. If you have a boot, open it to apply an ice pack, unless told otherwise by your provider . Compression devices help to control swelling. They also keep the ankle from moving and s upport your injured ankle. These devices include dressings, bandages, and wraps. Elevate or raise your ankle above the level of your heart when sitting or lying down. Th is is very important for the first 48 hours. Follow the RICE guidelines for a Grade 2 sprain. This type of sprain will take longer to heal. Your provider may have you wear a splint, cast, or brace to keep your ankle from movi ng. If you have a Grade 3 sprain, you are at risk for long-term ankle instability. In rare cases, surgery may be needed. Your provider may have you wear a short leg cast or a walking boot for 2 to 3 weeks. After 48 hours, it may be helpful to apply heatfor 20 minutes several times a day. You can do this with a heating pad or warm compress. Or you may want to go back and forth betwe en using ice and heat. Never apply heat directly to the skin. Always wrap the heating pad or warm compress in a clean, thin towel or cloth. You may uezrtsa-swz-hgtbfal pain medicine(NSAIDS or nonsteroidal anti-inflammatory d rugs) to control pain, unless another pain medicine was prescribed. Talk with your provider beforeusing these medicines if you have chronic liver or kidney disease, or have ever had a stomach ulcer or GI (gastrointestinal) bleeding. Follow any rehabilitation exercises your provider gives you. These can help you be more flexible and improve your balance and coordination. This is helpful in preventing long-term ankle problems. Prevention To help prevent ankle sprains, it s important to have good strength, balance, and flexibi lity. Be sure to: Always warm up before you exercise or do something very active Be careful when walking or running on uneven or cracked surfaces Wear shoes that are in good condition and fit well Listen to your body s signals to slow down when you are in pain or tired Follow-up care Follow up with your healthcare provider, or as advised. Check for any warning signs listed below. If your symptoms don t improve or they get worse, talk with your provider. You may need a nX-ray. When to seek medical advice Call your healthcare provider right awayif any of these occur: Fever of 100.4 F (38 C) or higher, or as directed The injury doesn t seem to be healing The swelling comes back The cast has a bad smell The plaster cast or splint gets wet or soft The fiberglass cast or splint gets wet and does not dry for 24 hours The pain or swelling increases, or redness appears Your toes become cold, blue, numb, or tingly The skin is discolored (looks blue, purple, or dukes), has blisters, or is irritated You re-injure your ankle Date Last Reviewed: 05/20/201519990542-8848 [employer]. [address] [place] [address]. All righ ts reserved. This information is not intended as a substitute for professional medical care. Always follow your healthcare professional's instructions. documented in this encounter Progress Notes Bridgette Rashid, Dining Room Busser - 07/13/2016 1:58 PM PSTFitted patient with lace up ankle brace to left ankle per Dr. Ramos Aurelio Cody MD - 07/13/2016 1:11 PM PST Subjective: Patient ID: Aisha Rankin is a 45 y.o. female. 3 days ago patient had an inversion injur y to the left ankle at home. She's had acute pain particularly with weightbearing. 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 Her ankl e pretty much hurts all the time on the lateral aspect. She does not report instability how ever. HPI Patient's medications, allergies, past medical, surgical, social and family histories were obtained and reviewed as appropriate. Review of Systems no other systemic symptoms Objective: Physical Exam Constitutional: Normally developed, adequately nourished, and not in acute distress. Does not appear acute ly ill. Musculoskeletal: Feet: X-ray read by me shows no fractures, and her ankle joint does not show chronic arthritis. Assessment: Sprains left ankle, acute and recurrent Plan: She is fitted with a sport ankle support which she says gives her lots of benefit immediate ly. Referred to physical therapy for an ankle rehab program. This note was dictated using [employer] voice recognition software. Occasional wrong- word or sound-alike substitutions may have occurred due to the inherent limitations of voice recogni tion software. Please read the chart carefully and recognize, using context, where these todd bstitutions have occurred. documented in this enc ounter Plan of Treatment Not on filedocumented as of this encounter Results XR Ankle Left 3 [...] | Procedure Note | + + | Lux Fulton Results In - 07/13/2016 1:48 PM PST [...] | + + + + + | [facility] | [address] | [place] | [phone] | | [facility] | | [address] | | | - IMAGING | | | | + + + + + documented in this encounter Visit Diagnoses + + | Diagnosis | + + | Injury of left ankle, initial encounter - Primary | + + documented in this encounter
--- OUTSIDE RECORDS SUMMARY | ~2019-06-30 | XMS | Encounter Summary ---
Demographics + + + | Address | [address] | | | [place] [address] | + + + | Home Phone | | + + + | Preferred Language | Unknown | + + + | Marital Status | | + + + | Mandaeism Affiliation | Unknown | + + + | Race | Unknown | + + + | Ethnic Group | Unknown | + + + Author + + + | Author | [facility] | | | and Jose Miguelana | + + + | Organization | [facility] | | | and Jose [...] Team Providers + +------+ + | Care Code Machine Operator Name | Role | Phone [...] Description | +--------+--------+ + + + | 04/28/ | Refill | [facility] | Wilber Dsouza | Medication Refill | | 2017 | | [address] | [address] | | | | | [place] | [address] [place] | | | | | [phone] | [address] | | | | | [phone] | | | +--------+--------+ + + + [...]
--- OUTSIDE RECORDS SUMMARY | ~2019-06-30 | XMS | Encounter Summary ---
Demographics + + + | Address | [address] | | | [place] [address] | + + + | Home Phone | | + + + | Preferred Language | Unknown | + + + | Marital Status | | + + + | Church Affiliation | Unknown | + + + | Race | Unknown | + + + | Ethnic Group | Unknown | + + + Author + + + | Author | [facility] | | | and Jose Miguelana | + + + | Organization | [facility] | | | and Jose Miguelana [...] Team Providers + +------+ + | Care Tax Economist Name | Role | Phone | + [...] Description | +--------+--------+ + + + | 05/26/ | Refill | [facility] | Wilber Dsouza | Medication Refill | | 2017 | | [address] | R, [address] | | | | | [place] | [address] [place] | | | | | [phone] | [address] | | | | | [phone] | | | +--------+--------+ + + + [...]
--- OUTSIDE RECORDS SUMMARY | ~2019-06-30 | XMS | Encounter Summary ---
Demographics + + + | Address | [address] | | | [place] [address] | + + + | Home Phone | | + + + | Preferred Language | Unknown | + + + | Marital Status | | + + + | Rastafari Affiliation | Unknown | + + + | Race | Unknown | + + + | Ethnic Group | Unknown | + + + Author + + + | Author | [facility] | | | and Jose Miguelana | + + + | Organization | [facility] | | | and Jose [...] Team Providers + +------+ + | Care Animal Ecologist Name | Role | Phone | + [...] [place] | | | | | [address] | [address] | | | | | [phone] | | | +--------+--------+ + + + [...]
--- OUTSIDE RECORDS SUMMARY | ~2019-06-30 | XMS | Clinical Summary ---
Demographics + + + | Address | [address] | | | [place] [address] | + + + | Home Phone | | + + + | Preferred Language | Unknown | + + + | Marital Status | | + + + | Samaritan Affiliation | Unknown | + + + | Race | Unknown | + + + | Ethnic Group | Unknown | + + + Author + + + | Author | [facility] | | | and Jose Miguelana | + + + | Organization | [facility] | | | and Jose [...] Team Providers + +------+ + | Care Supervisor Production Name | Role | Phone | + [...] +--------+ +---------+------+ | GEHA | GEHA | [phone] | [birth year] | [phone] | | PPO [...] | 1971 | [phone] | [place] [address] | | | mu | | | 0 (Home) | | + +--------+ +--------+ + + Advance Directives + + + + + | Type | Date Recorded | Patient | Explanation | | | | Coil Repair Technician | | + + + + + | Power of | | | | | Aluminum Welder | | | | + + + + + | Advance | | | | | Directive | | | | + + + + +
--- OUTSIDE RECORDS SUMMARY | ~2019-06-30 | XMS | Encounter Summary ---
Demographics + + + | Address | [address] | | | [place] [address] | + + + | Home Phone | | + + + | Preferred Language | Unknown | + + + | Marital Status | | + + + | Yarsani Affiliation | Unknown | + + + | Race | Unknown | + + + | Ethnic Group | Unknown | + + + Author + + + | Author | [facility] | | | and Jose Miguelana | + + + | Organization | [facility] | | | and Jose [...] Team Providers + +------+ + | Care Electrical Wirer Name | Role | Phone | + [...] + | 06/27/ | Office | [facility] | Aurelio Ramos MD | Acute serous otitis | | 2019 | Visit | [facility]ARE [address] | [address] | media of left ear, | | | | [place] | [place] | recurrence not | | | | [address] | [address] | specified (Primary | | | | [phone] | | Dx) | +--------+---------+ + + [...] for yourself at home: You may use ubcg-raw-soyicfu medicine as directed to control pain, unless [...] severe liver damag e. You may use nkfj-ikz-rqydlkf decongestants such as phenylephrine or pseudoephedrine. But [...] Unusual drowsiness or confusion Date Last Reviewed: 03/31/201619995922-8385 [employer]. [address] [place] [address]. All righ ts reserved. This information is [...] of this note have been dictated using [employer] s oftware. It will be reviewed for [...]
--- OUTSIDE RECORDS SUMMARY | ~2019-06-30 | XMS | Encounter Summary ---
Demographics + + + | Address | [address] | | | [place] [address] | + + + | Home Phone | | + + + | Preferred Language | Unknown | + + + | Marital Status | | + + + | Baptist Affiliation | Unknown | + + + | Race | Unknown | + + + | Ethnic Group | Unknown | + + + Author + + + | Author | [facility] | | | and Jose Miguelana | + + + | Organization | [facility] | | | and Jose [...] Team Providers + +------+ + | Care Global Program Director Name | Role | Phone | + [...] | encounter (Primary | | | | [address] | [address] | Dx) | | | | [phone] | | | +--------+---------+ + + + [...] until the sp rain heals. Prescription or agnn-sdm-wdyirra pain medicines. These help reduce swelling and [...] get worse New symptoms Date Last Reviewed: 09/08/201519996217-8392 [employer]. [address] [place] [address], [place] [address]. All righ ts reserved. This information is [...] day, or as instructed. Date Last Reviewed: 10/30/201519995169-7649 [employer]. [address] [place] [address], [place] [address]. All righ ts reserved. This information is [...] clean, thin towel or cloth. You may tzvrfce-eng-gvhnbox pain medicine(NSAIDS or nonsteroidal anti-inflammatory d rugs) [...] You re-injure your ankle Date Last Reviewed: 05/20/201519997566-0017 [employer]. [address] [place] [address]. All righ ts reserved. This information is not intended as a substitute for professional medical care. Always follow your healthcare professional's instructions. documented in this encounter Progress Notes Bridgette Rashid, Relocation Counselor - 07/13/2016 1:58 PM PSTFitted patient with [...] rehab program. This note was dictated using [employer] voice recognition software. Occasional wrong- word or [...] + | [facility] | [address] | [place] | [phone] | | [facility] | | [address] | | | - IMAGING | | | | + + + + + documented in this encounter Visit Diagnoses + + | Diagnosis | + + | Injury of left ankle, initial encounter - Primary | + + documented in this encounter
--- OUTSIDE RECORDS SUMMARY | ~2019-06-30 | XMS | Encounter Summary ---
Demographics + + + | Address | [address] | | | [place] [address] | + + + | Home Phone [...] + + | Author | [facility] | | | and Jose Miguelana | + + + | Organization | [facility] | | | and Jose [...] Team Providers + +------+ + | Care Logging Equipment Operator Name | Role | Phone | [...] [place] | | | | | [address] | [address] | | | | | [phone] | | | +--------+--------+ + + + [...]
--- OUTSIDE RECORDS SUMMARY | ~2019-06-30 | XMS | Encounter Summary ---
Demographics + + + | Address | [address] | | | [place] [address] | + + + | Home Phone | | + + + | Preferred Language | Unknown | + + + | Marital Status | | + + + | Yazdanism Affiliation | Unknown | + + + | Race | Unknown | + + + | Ethnic Group | Unknown | + + + Author + + + | Author | [facility] | | | and Jose Miguelana | + + + | Organization | [facility] | | | and Jose [...] Team Providers + +------+ + | Care Porcelain Enamel Installer Name | Role | Phone | + [...] [place] | | | | | [address] | [address] | | | | | [phone] | | | +--------+--------+ + + + [...]
--- OUTSIDE RECORDS SUMMARY | ~2019-06-30 | XMS | Encounter Summary ---
Demographics + + + | Address | [address] | | | [place] [address] | + + + | Home Phone | | + + + | Preferred Language | Unknown | + + + | Marital Status | | + + + | Methodist Affiliation | Unknown | + + + | Race | Unknown | + + + | Ethnic Group | Unknown | + + + Author + + + | Author | [facility] | | | and Jose Miguelana | + + + | Organization | [facility] | | | and [...] Team Providers + +------+ + | Care Centerless Grinder Tender Name | Role | Phone | + +------+ + | Raman Anderson MD | PCP | | + +------+ + Reason for Visit + + + | Reason | Comments | + + + | Otalgia | left ear pain since last weekend, RM 6 | + + + | Chest Pain | since saturday, constant sharp pain, negging | + + + | Heartburn | for the last couple of weeks | + + + Encounter Details +--------+---------+ + + + | Date | Type | Department | Care Team | Description | +--------+---------+ + + + | 04/16/ | Office | [facility] | Wilber Dsouza | Dysfunction of left | | 2017 | Visit | [address] | MD [address] | eustachian tube | | | | [place] | [place] | (Primary Dx); Acute | | | | [address] | [address] | viral pharyngitis; | | | | [phone] | | Costochondritis, | | | | | | acute; | | | | | | Gastroesophageal | | | | | | reflux disease | | | | | | without esophagitis | +--------+---------+ + + + Social History [...] + + + | Blood Pressure | 113/67 | 04/16/2017 11:29 AM | | | | | PDT | | + + + + + | Pulse | 96 | 04/16/2017 11:29 AM | | | | | PDT | | + + + + + | Temperature | 36.7 C (98 F) | 04/16/2017 11:29 AM | | | | | PDT | | + + + + + | Respiratory Rate | 16 | 04/16/2017 11:29 AM | | | | | PDT | | + + + + + | Oxygen Saturation | 96% | 04/16/2017 11:29 AM | | | | | PDT | | + + + + + | Inhaled Oxygen | - | - | | | Concentration | | | | + + + + + | Weight | 88.5 kg (195 lb) | 04/16/2017 11:29 AM | | | | | PDT | | + + + + + | Height | 175.3 cm (5' 9") | 04/16/2017 11:29 AM | | | | | PDT | | + + + + + | Body Mass Index | 28.8 | 04/16/2017 11:29 AM | | | | | PDT | | + + + + + documented in this encounter Patient Instructions Patient Instructions Wilber Dsouza MD - 04/16/2017 10:30 AM PDTDrink plenty of flui ds and get plenty of rest. Use ggni-sfr-wytwcez Tylenol as needed for fever, aches and pains. Lavage nose with saline solution 3-4 times a day to improve nasal congestion. Mix 1 level t easpoon of table salt with 2 cups of lukewarm water for nasal irrigation. If ear hurts or nose is occluded at night, use oxymetazoline nasal spray (Afrin or Dristan Long Acting), 1 spray in each nostril at bedtime only for no more than 5 days. Apply spray after using saline lavage and blowing nose clear. Use cool mist vaporizer in bedroom and living space to reduce cough and airway irritation. Gargle and spit out warm salt water to soothe sore throat. Use throat lozenges of choice an d/or Cepastat throat spray as needed. Take zgxa-npw-fkeiyaq Mucinex or equivalent product as needed for thick mucous. Use Robitussin DM as needed for cough. Left chest pain is typical of costochondritis. Treat this with Tylenol and warm compresses as needed. Return or follow-up with your primary doctor if not better in 1 week, sooner if experiencin g difficulty swallowing liquids, progressive productive cough, coughing up blood, associated chest pain, shortness of breath, fever or progessive sinus pressure/headache. These are s igns that you may need an antibiotic for bacterial infection. For heartburn, add Zantac 150 mg, 1 tablet twice daily with morning and evening meals. Avoid coffee, tea, cola, carbonated beverages, alcohol, tobacco, aspirin-related products a nd spicy foods. Follow the instructions outlined below to minimize heartburn symptoms. Follow-up with Dr. Rodriguez in the next few weeks to review heartburn issues and see if further evaluation is necessary. Chest Wall Pain: Costochondritis The chest pain that you have had today is caused by costochondritis. This condition is caus ed by an inflammation of the cartilage joining your ribs to your breastbone. It is not cause d by heart or lung problems. Your healthcare team has made sure that the chest pain you feel is not from a life threatening cause of chest pain such as heart attack, collapsed lung, bl ood clot in the lung, tear in the aorta, or esophageal rupture. The inflammation may have be en brought on by a blow to the chest, lifting heavy objects, intense exercise, or an illness that made you cough and sneeze a lot. Itoften occursduring times of emotional stress. It can be painful, but it is not dangerous. It usually goes away in 1 to 2 weeks. But it may happen again. Rarely, a more serious condition may cause symptoms similar to costochondriti s. That s why it s important to watch for the warning signs listed below. Home care Follow these guidelines when caring for yourself at home: If you feel that emotional stress is a cause of your condition, try to figure out the so urces of that stress. It may not be obvious. Learn ways to deal with the stress in your life . This can include regular exercise, muscle relaxation, meditation, or simply taking time ou t for yourself. You may use acetaminophen, ibuprofen, or naproxen to control pain, unless another pain m edicine was prescribed. If you have liver or kidney disease or ever had a stomach ulcer, mishel k with your healthcare provider before using these medicines. You can also help ease pain by using a hot, wet compress or heating pad. Use this with o r without a medicated skin cream that helps relieves pain. Do stretching exercise as advised by your provider. Take any prescribed medicines as directed. Follow-up care Follow up with your healthcare provider, or as advised, if you do not start to get better i n the next 2 days. When to seek medical advice Call your healthcare provider right away if any of these occur: A change in the type of pain. Call if it feels different, becomes more serious, lasts lo nger, or spreads into your shoulder, arm, neck, jaw, or back. Shortness of breath or pain gets worse when you breathe Weakness, dizziness, or fainting Cough with dark-colored sputum (phlegm) or blood Abdominal pain Dark red or black stools Fever of 100.4F (38C) or higher, or as directed by your healthcare provider Date Last Reviewed: 05/31/201619993595-9942 [employer]. [address] [place] [address], [place] [address]. All righ ts reserved. This information is not intended as a substitute for professional medical care. Always follow your healthcare professional's instructions. GERD (Adult) The esophagus is a tube that carries food from the mouth to the stomach. A valve at the low er end of the esophagus prevents stomach acid from flowing upward. When this valve doesn't w ork properly, stomach contents may repeatedly flow back up (reflux) into the esophagus. This is calledgastroesophageal reflux disease (GERD).GERD can irritate the esophagus. It can cause problems with swallowing or breathing. In severe cases, GERD can cause recurrent pneu monia or other serious problems. Symptoms of reflux include burning, pressure or sharp pain in the upper abdomen or mid to l ower chest. The pain can spread to the neck, back, or shoulder. There may be belching, an ac id taste in the back of the throat, chronic cough, or sore throat or hoarseness. GERD sympto ms often occur during the day after a big meal. They can also occur at night when lying down . Home care Lifestyle changes can help reduce symptoms. If needed, medicines may be prescribed.Sympto ms often improve with treatment, but if treatment is stopped, the symptoms often return afte r a few months. So most persons with GERD will need to continue treatment. Lifestyle changes Limit or avoid fatty, fried, and spicy foods, as well as coffee, chocolate, mint, and fo ods with high acid content such as tomatoes and citrus fruit and juices (orange, grapefruit, lemon). Don t eat large meals, especially at night. Frequent, smaller meals are best. Do not l ie down right after eating. And don t eat anything 3 hours before going to bed. Avoid drinking alcohol and smoking. As much as possible, stay away from second hand smok e. If you are overweight, losing weight will reduce symptoms. Avoid wearing tight clothing around your stomach area. If your symptoms occur during sleep, use a foam wedge to elevate your upper body (not ju st your head.) Or, place 4" blocks under the head of your bed. Medicines If needed, medicines can help relieve the symptoms of GERD and prevent damage to the esopha benito. Discuss a medicine plan with your healthcare provider. This may include one or more of the following medicines: Antacids to help neutralize the normal acids in your stomach. Acid blockers (H2 blockers) to decrease acid production. Acid inhibitors (PPIs) to decrease acid production in a different way than the blockers. They may work better, but can take a little longer to take effect. Take an antacid 30-60 minutes after eating and at bedtime, but not at the same time as an a shelly christopher. Try not to take medicines such as ibuprofen and aspirin. If you are taking aspirin for your heart or other medical reasons, talk to your healthcare provider about stopping it. Follow-up care Follow up with your healthcare provider or as advised by our staff. When to seek medical advice Call your healthcare provider if any of the following occur: Stomach pain gets worse or moves to the lower right abdomen (appendix area) Chest pain appears or gets worse, or spreads to the back, neck, shoulder, or arm Frequent vomiting (can t keep down liquids) Blood in the stool or vomit (red or black in color) Feeling weak or dizzy Fever of 100.4F (38C) or higher, or as directed by your healthcare provider Date Last Reviewed: 12/21/201419999950-6408 [employer]. [address] [place] [address], [place] [address]. All righ ts reserved. This information is not intended as a substitute for professional medical care. Always follow your healthcare professional's instructions. documented in this encounter Progress Notes Wilber Dsouza MD - 04/16/2017 10:30 AM PDTFormatting of this note might be differen t from the original. 04/16/2017 Aisha Rankin 1970 Assessment: 1. Dysfunction of left eustachian tube 2. Acute viral pharyngitis POCT Streptococcus A NAAT 3. Costochondritis, acute 4. Gastroesophageal reflux disease without esophagitis raNITIdine (ZANTAC) 150 mg tablet 4 day history of viral URI with cough and dominant symptoms of pharyngitis and left eustach su tube dysfunction. Has mild, associated left costochondritis. 2 week history of symptom s consistent with gastritis and GERD. She was given the following instructions, prescriptio n and a note for work. Plan: Drink plenty of fluids and get plenty of rest. Use ryiu-xvf-etlwrje Tylenol as needed for fever, aches and pains. Lavage nose with saline solution 3-4 times a day to improve nasal congestion. Mix 1 level t easpoon of table salt with 2 cups of lukewarm water for nasal irrigation. If ear hurts or nose is occluded at night, use oxymetazoline nasal spray (Afrin or Dristan Long Acting), 1 spray in each nostril at bedtime only for no more than 5 days. Apply spray after using saline lavage and blowing nose clear. Use cool mist vaporizer in bedroom and living space to reduce cough and airway irritation. Gargle and spit out warm salt water to soothe sore throat. Use throat lozenges of choice an d/or Cepastat throat spray as needed. Take udrh-wni-ivugyjf Mucinex or equivalent product as needed for thick mucous. Use Robitussin DM as needed for cough. Left chest pain is typical of costochondritis. Treat this with Tylenol and warm compresses as needed. Return or follow-up with your primary doctor if not better in 1 week, sooner if experiencin g difficulty swallowing liquids, progressive productive cough, coughing up blood, associated chest pain, shortness of breath, fever or progessive sinus pressure/headache. These are s igns that you may need an antibiotic for bacterial infection. For heartburn, add Zantac 150 mg, 1 tablet twice daily with morning and evening meals. Avoid coffee, tea, cola, carbonated beverages, alcohol, tobacco, aspirin-related products a nd spicy foods. Follow the instructions outlined below to minimize heartburn symptoms. Follow-up with Dr. Rodriguez in the next few weeks to review heartburn issues and see if further evaluation is necessary. The risks and benefits, including potential side effects of medication changes, have been d iscussed with the patient. We agreed on implementing the current plan. The note may have been dictated using [employer] voice recognition software. It may have not b een proofread in entirety. Minor errors in grammar may occur. History: Chief Complaint Patient presents with Otalgia left ear pain since last weekend, RM 6 Chest Pain since saturday, constant sharp pain, negging Heartburn for the last couple of weeks Aisha Rankin is a 46 y.o. female here for evaluation of left ear pain starting 3 days ag o. Has associated raw and scratchy sore throat with dry cough. No nasal congestion, postna kimmy drainage or sinus pain. No documented fever, has sweats and chills. No recent swimming . No ear redness, swelling or ear drainage. No change in hearing, popping, ringing, or cristopher tigo, mild nausea without vomiting. 2 weeks of reduced appetite. No hx of prior similar pr oblems. Also reports 2 day history of sharp, localized, positional left anterior chest discomfort w ith baseline dull ache. No radiation to the neck, jaw, shoulder or arm. Area is tender to touch pointing to the left mid costochondral junctions. No shortness of breath or pleuritic enhancement. No history of DVT or PE. Denies leg swelling or pain. Also complains of heartburn for the last 2 weeks with epigastric discomfort radiating into the center of the chest, relieved with Tums and worse with coffee. Has not used over-the-co unter acid reducers such as Pepcid, Zantac or Prilosec. No known history of hiatal hernia o r GERD. Symptoms worse after large meals and coffee. Mild associated nausea without emesis . Denies exertional symptoms, shortness of breath and diaphoresis. No history of CAD, hear t disease or lung trouble. Rarely drinks alcohol. Nonsmoker and denies recreational drug u se. No diabetes, hypertension or hyperlipidemia. No family history precocious CAD. She plans to establish with Dr. Rodriguez for primary care. Current medications, past medical, surgical, family and social histories were reviewed and updated where appropriate. No Known Allergies Physical Exam: BP 113/67 | Pulse 96 | Temp 36.7 C (98 F) (Temporal) | Resp 16 | Ht 1.753 m (5' 9") | Wt 88.5 kg (195 lb) | SpO2 96% | ? No | BMI 28.80 kg/m General Appearance: Alert, cooperative, middle-aged female in no distress, appears stated age. Exhibits dry, hacking cough during the exam. Head: Normocephalic, no facial sinus tenderness. No mastoid tenderness. Eyes: Clear conjunctiva without exudates. Ears: Clear external ear canals with mildly retracted, not erythematous TM on the left. Nl EAC and TM on the right. Not tender over both tragus. No pain to pull pinna. Grossly norm al hearing. Nose: Mildly congested with clear exudates. Oropharynx: Moist mucous membranes. Moderately erythematous, moderate symmetric tonsillar edema without exudates. Neck: Supple, symmetrical, no infraauricular or anterior cervical adenopathy. Chest: Focal, reproducible, chest tenderness at the left third costochondral junction repro ducing her discomfort. No palpable chest wall mass or fluctuance. Lungs: Clear to auscultation, respirations unlabored. Cardiac: Regular rhythm without murmur, rub or gallop. Abdomen: Flat with normally active bowel sounds, soft, mild tenderness in the epigastrium t o deep palpation without guarding or rebound tenderness. No tenderness elsewhere. No organ omegaly or masses. Back: No CVA percussion tenderness. Extremities: No lower extremity edema. Soft, nontender calves, no cords, negative Homans s ign. Skin: Skin color, texture, turgor normal, no rash. Recent Results (from the past 24 hour(s)) POCT Streptococcus A NAAT Result Value Ref Range Group A Strep, DNA POC Negative Negative Internal QC Acceptable Acceptable CULTURE SENT TO LAB Wilber Dsouza M.D. documented in th is encounter Plan of Treatment Not on filedocumented as of this encounter Procedures + +--------+ + + + | Procedure Name | Priori | Date/Time | Associated Diagnosis | Comments | | | ty | | | | + +--------+ + + + | POCT STREPTOCOCCUS A | Routin | 04/16/2017 | Acute viral | Results for this | | NAAT | e | 11:57 AM | pharyngitis | procedure are in the | | | | PDT | | results section. | + +--------+ + + + documented in this encounter Results POCT Streptococcus A NAAT (04/16/2017 11:57 AM PDT) + + + + + + | Component | Value | Ref Range | Performed | Pathologist | | | | | At | Signature | + + + + + + | Group A | Negative | Negative | | | | Strep, DNA | | | | | | POC | | | | | + + + + + + | Internal QC | Acceptable | Acceptable | | | + + + + + + | CULTURE | | | | | | SENT TO LAB | | | | | + + + + + + + + | Specimen | + + | | + + documented in this encounter Visit Diagnoses + + | Diagnosis | + + | Dysfunction of left eustachian tube - Primary Dysfunction of Eustachian tube | + + | Acute viral pharyngitis Acute pharyngitis | + + | Costochondritis, acute Tietze's disease | + + | Gastroesophageal reflux disease without esophagitis Esophageal reflux | + + documented in this encounter
--- OUTSIDE RECORDS SUMMARY | ~2019-06-30 | XMS | Encounter Summary ---
Demographics + + + | Address | [address] | | | [place] [address] | + + + | Home Phone | | + + + | Preferred Language | Unknown | + + + | Marital Status | | + + + | Latter Day Affiliation | Unknown | + + + | Race | Unknown | + + + | Ethnic Group | Unknown | + + + Author + + + | Author | [facility] | | | and Jose Miguelana | + + + | Organization | [facility] | | | and Jose [...] Team Providers + +------+ + | Care Resource Conservationist Name | Role | Phone | + +------+ + | Raman Anderson MD | PCP | | + +------+ + Reason for Visit + + + | Reason | Comments | + + + | Appointment Question | | + + + Encounter Details +--------+ + + + + | Date | Type | Department | Care Team | Description | +--------+ + + + + | 07/10/ | Telephone | [facility] | Wilber Dsouza | Appointment Question | | 2017 | | [address] | MD [address] | | | | | [place] | [address] [place] | | | | | [address] | [address] | | | | | [phone] | | | +--------+ + + + [...]
--- OUTSIDE RECORDS SUMMARY | ~2019-06-30 | XMS | Encounter Summary ---
Demographics + + + | Address | [address] | | | [place] [address] | + + + | Home Phone | | + + + | Preferred Language | Unknown | + + + | Marital Status | | + + + | Rastafari Affiliation | Unknown | + + + | Race | Unknown | + + + | Ethnic Group | Unknown | + + + Author + + + | Author | [facility] | | | and Jose Miguelana | + + + | Organization | [facility] | | | and [...] Team Providers + +------+ + | Care Reproductive Endocrinologist Name | Role | Phone | + +------+ + | Raman Adnerson MD | PCP | | + +------+ [...] [place] | | | | | [address] | [address] | | | | | [phone] | | | +--------+ + + + [...]
--- OUTSIDE RECORDS SUMMARY | ~2019-06-30 | XMS | Encounter Summary ---
Demographics + + + | Address | [address] | | | [place] [address] | + + + | Home Phone | | + + + | Preferred Language | Unknown | + + + | Marital Status | | + + + | Jewish Affiliation | Unknown | + + + | Race | Unknown | + + + | Ethnic Group | Unknown | + + + Author + + + | Author | [facility] | | | and Jose Miguelana | + + + | Organization | [facility] | | | and Jose [...] Team Providers + +------+ + | Care Bag Machine Helper Name | Role | Phone | + [...] [place] | | | | | [address] | [address] | | | | | [phone] | | | +--------+ + + + [...]
--- OUTSIDE RECORDS SUMMARY | ~2019-06-30 | XMS | Encounter Summary ---
Demographics + + + | Address | [address] | | | [place] [address] | + + + | Home Phone | | + + + | Preferred Language | Unknown | + + + | Marital Status | | + + + | Pentecostal Affiliation | Unknown | + + + | Race | Unknown | + + + | Ethnic Group | Unknown | + + + Author + + + | Author | [facility] | | | and Jose Miguelana | + + + | Organization | [facility] | | | and [...] Team Providers + +------+ + | Care Welt Trimming Machine Operator Name | Role | Phone [...] (Primary Dx); Acute | | | | [address] | [address] | viral pharyngitis; | | | | [phone] | | Costochondritis, | | | | [...] ds and get plenty of rest. Use dysx-cpg-ftrqxrr Tylenol as needed for fever, aches and [...] d/or Cepastat throat spray as needed. Take jidb-uyh-ymfovxf Mucinex or equivalent product as needed for [...] by your healthcare provider Date Last Reviewed: 05/31/201619993128-7008 [employer]. [address] [place] [address], [place] [address]. All righ ts reserved. This information is [...] by your healthcare provider Date Last Reviewed: 12/21/201419997382-9443 [employer]. [address] [place] [address], [place] [address]. All righ ts reserved. This information is [...] fluids and get plenty of rest. Use auid-jow-rnolezh Tylenol as needed for fever, aches and [...] d/or Cepastat throat spray as needed. Take gxlo-bsa-zkaupdc Mucinex or equivalent product as needed for [...] The note may have been dictated using [employer] voice recognition software. It may have not [...]
--- OUTSIDE RECORDS SUMMARY | ~2019-06-30 | XMS | Encounter Summary ---
Demographics + + + | Address | [address] | | | [place] [address] | + + + | Home Phone | | + + + | Preferred Language | Unknown | + + + | Marital Status | | + + + | Latter-Day Affiliation | Unknown | + + + | Race | Unknown | + + + | Ethnic Group | Unknown | + + + Author + + + | Author | [facility] | | | and Jose Miguelana | + + + | Organization | [facility] | | | and Jose [...] Team Providers + +------+ + | Care Cancer Registry Manager Name | Role | Phone | + [...] [place] | | | | | [address] | [address] | | | | | [phone] | | | +--------+--------+ + + + [...]
--- OUTSIDE RECORDS SUMMARY | ~2019-06-30 | XMS | Encounter Summary ---
Demographics + + + | Address | [address] | | | [place] [address] | + + + | Home Phone | | + + + | Preferred Language | Unknown | + + + | Marital Status | | + + + | Denominational Affiliation | Unknown | + + + | Race | Unknown | + + + | Ethnic Group | Unknown | + + + Author + + + | Author | [facility] | | | and Jose Miguelana | + + + | Organization | [facility] | | | and [...] Team Providers + +------+ + | Care [employer] Supervisor Name | Role | Phone | + [...] + + | 06/26/ | Office | [facility] | Wilber Dsouza | Viral URI with cough | | 2016 | Visit | CARE [address] | MD [address] | (Primary Dx); | | | | [address] | [address] [place] | Influenza, probable | | | | [id number] | [address] | | | | | [phone] | | | +--------+---------+ + + + [...] fluids and get plenty of rest. Use qrik-iat-ctyzjgz Tylenol, Aleve or Advil as needed for [...] d/or Cepastat throat spray as needed. Take mmvu-cll-mgnzcmz Mucinex or equivalent product as needed for [...] secretions in your nose and lungs . Nljt-kqd-wvdpbqz cold medicines will not make the flu [...] after getting better for a few days [phone] [employer] [place] [address]. All righ ts reserved. This information is [...] fluids and get plenty of rest. Use cvzh-are-uupsebk Tylenol, Aleve or Advil as needed for [...] d/or Cepastat throat spray as needed. Take jyzl-tao-ytenehe Mucinex or equivalent product as needed for [...]
[~2019-06-30 01:17] MED LIST: ALORA1 EAC1 TD; CALTRATE 600600 MG PO; FISH OIL300 MG PO; FLONASE2 SPRAY NS; IRON325 M1 PO; METFORMIN HCL500 MG PO; MULTIVITAMINS1 EAC8 PO; NORCO 5-325 TA1 EACH PO; SUDAFED 24-HOU240 MG PO; VITAMIN B COMP1 EACH PO; VITAMIN C500 M3 PO; VITAMIN D5000 UNIT PO; VITAMIN E200 UNI1 PO; VITAMIN E400 UNI6 PO
[2019-06-30] MEDS ORDERED: CALCIUM500 MG PO (01:31)
[2019-06-30] MEDS ORDERED: FLONASE ALLERG9.9 ML NAS (01:32)
[2019-06-30] MEDS ORDERED: AZELASTINE HCL6 ML OPTH (01:33)
[2019-06-30] MEDS ORDERED: ESTRADIOL1 MG PO (01:34)
[2019-06-30] MEDS ORDERED: AMOXICILLIN875 MG PO (01:34)
[2019-06-30] MEDS ORDERED: CIPRODEX OTIC7.5 ML AS (01:49)
[2019-06-30] MEDS ORDERED: NORCO 5-325 TA1 EACH PO (01:49)
[2019-06-30] MEDS ORDERED: AUGMENTIN 875-1 EACH PO (01:49)
== END 2019-06-30 01:58 | disposition home or self-care (01) ==
LOC: ED 01:17
DX: H66.92 Otitis media, unspecified, left ear (principal); H60.92 Unspecified otitis externa, left ear; Z79.899 Other long term (current) drug therapy
CPT/HCPCS: 99283-25

== ENCOUNTER 2022-08-27 07:29 | Day surgery (SDC) | payer BC ==
[~2022-08-27] VITALS: Ht 175.3 cm; Wt 83.2 kg
--- NOTE | ~2022-08-27 | OR ---
[facility] [address] [place], [place] [address] Draft DATE OF OPERATION: 08/27/2022 SURGEON: Yasmeen Raygoza MD PREOPERATIVE DIAGNOSIS: Colon screening. POSTOPERATIVE DIAGNOSIS: 1. Scattered diverticula. 2. Mild cecal inflammation. 3. Diminutive polyp of cecum (excised). PROCEDURES: Total colonoscopy to cecum with biopsy of cecum and cold morcellation polypectomy x1. ANESTHESIA: Intravenous sedation, fentanyl 150 mcg and Versed 9 mg. INDICATIONS: This 52-year-old woman is a patient Dr. Worley at [facility]. She is referred for colon screening. She has no symptoms of bleeding, diarrhea, or constipation and no family history of colon cancer. She understands the risks of bleeding, infection, and perforation related to colonoscopy and wished to proceed. FINDINGS: Colonoscopy was somewhat challenging. This may in part be related to her prior hysterectomy and bladder reconstruction. Ultimately, complete colonoscopy was accomplished. She had scattered diverticula throughout the colon in minimal amounts. She had mild inflammation of the cecum as manifested by edema and blurring of vascularity. There was a minute polyp of the cecum also excised. There were no other findings of concern. DESCRIPTION OF PROCEDURE: The patient was brought to the endoscopy suite and placed in lateral decubitus position, given intravenous sedation to the point of slurred speech and nystagmus. Digital rectal examination was normal. An Olympus video colonoscope was passed into the rectum and manipulated throughout the colon. The prep was reasonably good. Passage to the cecum was not too difficult, there were scattered diverticula noted. Passage beyond the splenic flexure was somewhat PATIENT NAME: CHATA EISENBERG OPERATIVE REPORT DATE OF : 70 REPORT #: [id number] PHYSICIAN: YASMEEN RAYGOZA MD PCP: EMMA KIM REPORT IS CONFIDENTIAL AND NOT TO BE RELEASED WITHOUT AUTHORIZATION [facility] [address] [place], [place] [address] Draft challenging requiring additional sedation as well as abdominal wall stabilization. Ultimately, the scope was passed to the cecum. Good visualization of the cecum overall was noted and there was mild edema of the cecum and blurring of vascularity suggestive of low-grade colitis. Biopsies were obtained. Mucosa behind the ileocecal valve was elevated and biopsied as well. There was a tiny polyp of the cecum, which was excised with cold morcellation technique. The scope was then withdrawn and examination throughout undertaken showing scattered small diverticula throughout the colon. Retroflexed view of the rectum was normal. The scope was removed and the patient taken to the recovery room in good condition. CONCLUDING DIAGNOSES: 1. Minimal diverticulosis. 2. Tiny polyp of cecum (excised) and mild inflammation of the cecum. PLAN: Recommend repeat colonoscopy in 5-10 years depending on pathology. If adenoma is noted, five years; if hyperplastic or other innocuous polyp findings, 10 years repeat. MD ALEJANDRO Rico/ALOK /[id number] cc: Dr. Worley [facility] Copies: ~ PATIENT NAME: CHATA EISENBERG OPERATIVE REPORT DATE OF : 70 REPORT #: [id number] PHYSICIAN: YASMEEN RAYGOZA MD PCP: EMMA KIM REPORT IS CONFIDENTIAL AND NOT TO BE RELEASED WITHOUT AUTHORIZATION
[~2022-08-27 07:29] MED LIST changes: +ALLERGY25 MG PO; +AMOXICILLIN875 MG PO; +AUGMENTIN 875-1 EACH PO; +AZELASTINE HCL6 ML OPTH; +CALCIUM500 MG PO; +CIPRODEX OTIC7.5 ML AS; +CLEAR EYES REDNE6 ML; +ESTRADIOL1 MG PO; +FLONASE ALLERG9.9 ML NAS
--- NOTE | 2022-08-27 09:30 | NUR ---
08/27/22 0930 Ligia Valdez 0904 PT ARRIVED IN PACU SLEEPY. ABD SOFT AND PASSING FLATUS. 0915 DR AT BEDSIDE. ALL QUESTIONS ANSWERED. 924 RESTING. REU.
--- NOTE | 2022-08-29 11:47 | PATH ---
[facility] [address] [place], [place] [address] Signed SPECIMEN(S): A CECUM COLON POLYP SPECIMEN(S): B CECUM COLON BIOPSY SPECIMEN SOURCE: A. CECUM COLON POLYP B. CECUM COLON BIOPSY CLINICAL HISTORY: Pre: Initial screening colonoscopy. Post: Diverticulosis, diminutive cecal polyp, mild cecal inflammation. FINAL PATHOLOGIC DIAGNOSIS: A. Cecum colon polyp: - Tubular adenoma (one fragment). B. Cecum colon biopsy: - Benign colonic mucosa with incidental mucosal lymphoid aggregates with reactive histologic featues. - Negative for pathologic inflammation or epithelial dysplasia. JVR:[facility]:C2NR MICROSCOPIC EXAMINATION: Histologic sections of all submitted blocks are examined by light microscopy. These findings, together with the gross examination, support the pathologic diagnosis. GROSS DESCRIPTION: A. The specimen, labeled and designated "Hogge, cecum polyp," is received in formalin and consists of two bunch soft tissue fragments, ranging from 0.1-0.2 cm. Entirely submitted in (A1). B. The specimen, labeled and designated "Hogge, cecum biopsy," is received in formalin and consists of two bunch soft tissue fragments, ranging from 0.2-0.5 cm. Entirely submitted in (B1). JS (under the direct supervision of a pathologist) The Gross Description was prepared using a voice recognition system. The report was reviewed for accuracy; however, sound-alike word errors, addition and/or deletions may occur. If there is any question about this report, please contact Client Services. PERFORMING LABORATORY: The technical component was performed by [employer], [address] [place] [id number] (CLIA# [id number]). Professional interpretation was PATIENT NAME: CHATA EISENBERG PATHOLOGY DATE OF : 70 REPORT #: [id number] PHYSICIAN: [facility] PCP: EMMA KIM REPORT IS CONFIDENTIAL AND NOT TO BE RELEASED WITHOUT AUTHORIZATION [facility] [address] [place], [place] [address] Signed performed by [facility] [address] [place] [address] (CLIA#: [id number]). Diagnostician: Yoshi Vines MD Pathologist Electronically Signed 08/29/2022 Copies: ~ PATIENT NAME: CHATA EISENBERG PATHOLOGY DATE OF : 70 REPORT #: [id number] PHYSICIAN: [facility] PCP: EMMA KIM REPORT IS CONFIDENTIAL AND NOT TO BE RELEASED WITHOUT AUTHORIZATION
== END 2022-08-27 10:15 | disposition home or self-care (01) ==
LOC: OPS 07:29 → DS 07:29 → OPS 10:15
PROVIDERS: ATTEND Surgery
PROC: 0DBH8ZZ Excision of Cecum, Via Natural or Artificial Opening Endoscopic (ICD-10-PCS; principal; 2022-08-27 08:30)
DX: Z12.11 Encounter for screening for malignant neoplasm of colon (principal); Z90.711 Acquired absence of uterus with remaining cervical stump; Z90.49 Acquired absence of other specified parts of digestive tract; K57.30 Diverticulosis of large intestine without perforation or abscess without bleeding; D12.0 Benign neoplasm of cecum
CPT/HCPCS: 99153; G0500; J2250; J3010

== ENCOUNTER 2023-11-28 13:43 | Emergency (ER) | payer BC, OTHER ==
[~2023-11-28] VITALS: Ht 175.3 cm; Wt 90.0 kg
[2023-11-28] MEDS ORDERED: EPIPEN AUTO INJECTOR 0.3 MG/0.3 ML ML IM ONE (14:00)
[2023-11-28] MEDS ORDERED: FAMOTIDINE 20 MG/ 2 ML VIAL IV ONE ×2 (14:00)
[2023-11-28] MEDS ORDERED: SODIUM CHLORIDE 0.9% 1,000 ML IV ONE (14:00)
[2023-11-28] MEDS ORDERED: methylPREDNISolone SOD SUCC 125 MG/2 ML VIAL IV ONE (14:00)
[2023-11-28] MEDS ORDERED: diphenhydrAMINE HCL 50 MG/ML VIAL IV ONE (14:00)
[2023-11-28 14:05] LABS: BASOPHILS 0.3 % (0-2); HEMATOCRIT 44.2 % (35.0-50.0); HEMOGLOBIN 15.1 g/dL (12.0-18.0); LYMPHOCYTES 11.3 % (24-44); MCH 30.2 (27-36); MCHC 34.2 g/dl (30-36); MCV 88.3 fl (81-99); MONOCYTES 2.3 % (0-12); NEUTROPHILS 86.1 % (39-80); PLATELET COUNT 312 K/uL (140-440); RBC 5.01 M/ul (4.3-5.7); RDW 13.3 (10.5-15.0)
[2023-11-28 14:21] LABS: ALBUMIN 3.7 g/dL (3.4-5.0); ALBUMIN/GLOBULIN RATIO 0.84 (1.1-2.4); ANION GAP 18.1 (7-21); BILIRUBIN, TOTAL 0.3 ng/dL (0.2-1.0); BUN/CREATININE RATIO 9.09 (6.0-28.6); CALCIUM 8.8 mg/dL (8.5-10.1); CREATININE, SERUM 0.99 mg/dL (0.55-1.02); POTASSIUM 4.1 mmol/L (3.5-5.1); PROTEIN, TOTAL 8.1 g/dL (6.4-8.2)
[2023-11-28] MEDS ORDERED: ACETAMINOPHEN 500 MG TAB PO ONE (15:00)
[2023-11-28] MEDS ORDERED: PREDNISONE20 MG PO (15:51)
[2023-11-28] MEDS ORDERED: PEPCID20 MG PO (15:51)
[2023-11-28] MEDS ORDERED: EPIPEN 2-P0.3 MG/0.3 IM (15:53)
[2023-11-28 16:05] VITALS: BP 110/66
== END 2023-11-28 16:05 | disposition home or self-care (01) ==
LOC: ED 13:43
PROVIDERS: Emergency Medicine
DX: T78.40XA Allergy, unspecified, initial encounter (principal); Z88.0 Allergy status to penicillin; Z79.899 Other long term (current) drug therapy
CPT/HCPCS: 36415; 80053; 85025; 96374; 96375; 99283-25; A9270; J0171; J1200; J2919; J7030

== ENCOUNTER 2023-12-19 11:54 | Emergency (ER) | payer BC, OTHER ==
[~2023-12-19] VITALS: Ht 175.3 cm; Wt 88.2 kg
[~2023-12-19 11:54] MED LIST changes: +EPIPEN 2-P0.3 MG/0.3 IM; +PEPCID20 MG PO; +PREDNISONE20 MG PO
--- OUTSIDE RECORDS SUMMARY | 2023-12-19 12:01 | XMS ---
PreManage Notification: CHATA EISENBERG [employer] Events No recent Security Events currently on file CRITERIA MET - [facility] - 2 Visits in 30 Days CARE PROVIDERS JANEY BAXTER [facility] Current PHONE: [phone] [facility]: Unknown Leah has no Care Guidelines for this patient. [facility] VISIT COUNT (12 MO.) 2 [facility] TOTAL 2 NOTE: Visits indicate total known visits. ED/UCC VISIT TRACKING (12 MO.) 12/19/2023 11:54 [facility] [place] TYPE: Emergency COMPLAINT: - COLD SYMPTOMS 11/28/2023 13:44 [facility] [place] TYPE: Emergency COMPLAINT: - ALLERGIC REACTION DIAGNOSES: - Allergy status to penicillin - Allergy, unspecified, initial encounter - Other prison (current) drug therapy INPATIENT VISIT TRACKING (12 MO.) No inpatient visits to display in this time frame [email or web address]
[2023-12-19] MEDS ORDERED: SODIUM CHLORIDE 0.9% 1,000 ML IV PRN (12:30)
[2023-12-19 12:34] LABS: BASOPHILS 0.6 % (0-2); EOSINOPHILS 0.3 % (0-6); HEMATOCRIT 37.7 % (35.0-50.0); HEMOGLOBIN 12.9 g/dL (12.0-18.0); LYMPHOCYTES 7.7 % (24-44); MCH 29.7 (27-36); MCHC 34.1 g/dl (30-36); MCV 87.1 fl (81-99); MONOCYTES 7.3 % (0-12); NEUTROPHILS 84.1 % (39-80); PLATELET COUNT 239 K/uL (140-440); RBC 4.33 M/ul (4.3-5.7); RDW 12.7 (10.5-15.0)
[2023-12-19] MEDS ORDERED: KETOROLAC TROMETHAMINE 15 MG/ML VIAL IV ONE (12:45)
[2023-12-19 12:50] LABS: ALBUMIN 3.6 g/dL (3.4-5.0); ALBUMIN/GLOBULIN RATIO 0.92 (1.1-2.4); ANION GAP 12.9 (7-21); BILIRUBIN, TOTAL 0.4 ng/dL (0.2-1.0); BUN/CREATININE RATIO 11.49 (6.0-28.6); CALCIUM 8.8 mg/dL (8.5-10.1); CREATININE, SERUM 0.87 mg/dL (0.55-1.02); POTASSIUM 3.9 mmol/L (3.5-5.1); PROTEIN, TOTAL 7.5 g/dL (6.4-8.2)
[2023-12-19 12:54] LABS: LACTIC ACID, BLOOD 1.3 mmol/L (0.4-2.0)
[2023-12-19] MEDS ORDERED: ACETAMINOPHEN 500 MG TAB PO ONE (13:00)
[2023-12-19 13:06] LABS: INFLUENZA B NAA NEGATIVE (NEGATIVE); RESPIRATORY SYNCYTIAL VIR NAA NEGATIVE (NEGATIVE)
[2023-12-19 13:47] LABS: BILIRUBIN, URINE NEGATIVE (negative); BLOOD/HGB, URINE NEGATIVE (Negative); KETONE, URINE TRACE (Negative); LEUK ESTERASE, URINE NEGATIVE (negative); NITRITE, URINE POSITIVE (negative); PH, URINE 7.5 (5-7)
[2023-12-19 13:53] LABS: EPITHELIAL CELLS, URINE SQUAMOUS 1+ /lpf (0-1+); WHITE BLOOD CELLS, URINE 0-1 /HPF (0-5)
[2023-12-19 13:54] LABS: BACTERIA, URINE 3+ /hpf (negative); CASTS, URINE NONE SEEN \\lpf; COLLECTION TYPE, URINE CLEAN CATCH; CRYSTALS, URINE NONE SEEN (0-1+); REFLEX CULTURE, URINE Yes (No)
[2023-12-19] MEDS ORDERED: ZITHROMAX250 MG PO (14:21)
[2023-12-19] MEDS ORDERED: HYDROCODONE/ACETA 5/325 TAB PO ONE (14:30)
[2023-12-19] MEDS ORDERED: AZITHROMYCIN 250 MG TAB PO ONE (14:30)
[2023-12-19 15:30] VITALS: BP 128/70
--- NOTE | 2023-12-20 16:09 | EKG ---
[facility] [address] [facility] [place], [place] [address] Signed Sinus tachycardia Otherwise normal ECG No previous ECGs available Confirmed by Real Moore ([id number]) on 12/20/2023 4:09:28 PM Electronically Signed By: REAL MOORE MD 12/20/23 1609 PATIENT NAME: CHATA EISENBERG Electrocardiogram DATE OF : 70 PHYSICIAN: REAL MOORE MD REPORT #: [id number] REPORT IS CONFIDENTIAL AND NOT TO BE RELEASED WITHOUT AUTHORIZATION
== END 2023-12-19 15:30 | disposition home or self-care (01) ==
LOC: ED 11:54
PROVIDERS: Emergency Medicine
DX: J18.9 Pneumonia, unspecified organism (principal); Z79.51 Long term (current) use of inhaled steroids; Z79.818 Long term (current) use of other agents affecting estrogen receptors and estrogen levels; Z79.899 Other long term (current) drug therapy; Z88.0 Allergy status to penicillin
CPT/HCPCS: 36415; 71045; 80053; 81001; 83605; 85025; 87502; 93005; 93010; A9270; J1885; J7030; U0002

== ENCOUNTER 2025-02-26 08:31 | Emergency (ER) | payer BC, OTHER ==
[~2025-02-26] VITALS: Ht 175.3 cm; Wt 84.9 kg
[~2025-02-26 08:31] MED LIST changes: +ZITHROMAX250 MG PO
[2025-02-26] MEDS ORDERED: ASPIRIN 81 MG CHEW PO ONE (08:45)
[2025-02-26] MEDS ORDERED: FLUTICASONE PRO16 GM (08:46)
[2025-02-26] MEDS ORDERED: ESTRADIOL1 EACH TD (08:46)
[2025-02-26 08:47] LABS: BASOPHILS 0.4 % (0.1-1.2); EOSINOPHILS 0.3 % (0.7-5.8); LYMPHOCYTES 9.3 % (19.3-51.7); MCH 29.6 PG (25.6-32.2); MCHC 34.6 g/dL (32.2-35.5); MCV 85.6 fL (79.4-94.8); MONOCYTES 7.0 % (4.7-12.5); NEUTROPHILS 82.5 % (34.0-71.1); RBC 4.66 M/uL (3.93-5.22)
[2025-02-26 09:06] LABS: ALT (SGPT) 17 U/L (14-59); AST (SGOT) 15 U/L (15-37); GLOMERULAR FILTRATION RATE,EST 101 mL/min (>60); PROTEIN, TOTAL 8.0 g/dL (6.4-8.2); UREA NITROGEN 8 mg/dL (7-18)
[2025-02-26 11:29] LABS: CORONAVIRUS COVID-19 AG NEGATIVE (NEGATIVE)
[2025-02-26 13:22] VITALS: BP 99/66
--- NOTE | 2025-02-27 12:58 | EKG ---
[facility] [address] [facility] [place] [address] Signed Sinus tachycardia Left axis deviation Inferior infarct , age undetermined Abnormal ECG When compared with ECG of 19-DEC-2023 12:15, Inferior infarct is now present Confirmed by Joel Krishna DO ([id number]) on 02/27/2025 12:58:11 PM Electronically Signed By: JOEL KRISHNA DO 02/27/25 1258 PATIENT NAME: ELGINCHATALATRELL HARVEY Electrocardiogram DATE OF : 70 PHYSICIAN: JOEL KRISHNA DO REPORT #: [id number] REPORT IS CONFIDENTIAL AND NOT TO BE RELEASED WITHOUT AUTHORIZATION
== END 2025-02-26 13:22 | disposition home or self-care (01) ==
LOC: ED 08:31
PROVIDERS: Emergency Medicine
DX: J02.9 Acute pharyngitis, unspecified (principal); R07.89 Other chest pain; Z88.0 Allergy status to penicillin; Z79.899 Other long term (current) drug therapy
CPT/HCPCS: 36415; 71045; 80053; 83605; 83735; 84484; 85025; 87040; 87651; 93005; 93010; 99285-25; A9270